=== PATIENT | female | born 1945 | race African-American/Black ===

== ENCOUNTER 2016-10-03 19:02 | Inpatient (IN) | payer MEDICARE ==
--- NOTE | ~2016-10-03 | DS ---
Discharge Summary [address] [place]. [address] NAME: KATELYN ROBLES : 47 STATUS : DIS IN PAT#: [id number] AGE: 71 ADM/REG DATE : 10/05/16 MR#: [id number] REPORT SERV DATE: 10/22/16 DICTATED BY: CHARLETTE CUELLO DATE: 10/21/16 REPORT STATUS : Draft TRANSCRIBED BY: JAQUAN DATE: 10/21/16 Data Collection from hospitalization DISCHARGE DIAGNOSES: 1. Acute heart failure, chronic. 2. Questionable upper respiratory infection versus pneumonia. 3. Sinus tachycardia/nonsustained ventricular tachycardia. 4. Mitral valve regurgitation. 5. Depression. 6. Osteoarthritis. 7. Obesity. 8. Mental retardation. 9. Nonischemic cardiomyopathy with ejection fraction 20%. 10.Chronic venous insufficiency. 11.Osteopenia. 12.Osteoarthritis. 13.Severe hearing impairment. 14.Down syndrome. CONSULTATIONS: John Wilcox M.D., Ph.D, F.A.C.C. PROCEDURES PERFORMED: None. MEDICATIONS: Tylenol 1000 mg twice a day, Cordarone 200 mg daily, Artificial Tears one drop four times a day as needed, aspirin 81 mg daily, Bumex 0.5 mg at 4:00 p.m. and 1 mg daily as instructed, Caltrate plus D 600 mg twice a day, Coreg 6.25 mg twice a day, Celexa 20 mg at bedtime, Colace 200 mg daily, vitamin D 11117 units every 30 days as instructed, Flonase nasal spray two sprays nasally daily, potassium 10 mL every six hours as needed, Levaquin 750 mg every 48 hours, Claritin 10 mg daily, Cozaar 25 mg daily, Singulair 10 mg at bedtime, Prilosec 20 mg daily, MiraLAX powder one packet daily, Klor-Con 30 mEq daily, Zocor 20 mg at bedtime, and Muscle Rub one application topically twice a day as needed. She was instructed not to continue Tylenol p.r.n., Lasix, Toprol, Z-Mac, sennosides, and Zofran. CONDITION AT DISCHARGE: Stable. DISPOSITION: The patient was discharged home on a low-sodium diet with activities as instructed. She would follow up with Dr. John Wilcox on 11/04/2016 and with me seven days following discharge. She would follow up with neuro in [place] one month following discharge. She would follow up with [facility] one month following discharge. She was to undergo a [facility] Outpatient echocardiogram one week following discharge. HOSPITAL COURSE: This is a 71-year-old female who has Down syndrome. The patient presented to the [facility] with a persistent cough, dyspnea on exertion, and a complaint of just not feeling well. According to the assisted living facility, she is usually active, but over the past week, she has been all of her time in bed. She has had some nausea and vomiting and seemed to have some epigastric discomfort. Workup in the clinic had shown clear lungs on chest x-ray. Her white count was within normal limits. BNP was greater than 3000. In the emergency room, she became diaphoretic and had a chest x-ray that showed an infiltrate Discharge Summary [address] [facility] [place]. [address] NAME: KATELYN ROBLES ANN : 47 STATUS : DIS IN PAT#: [id number] AGE: 71 ADM/REG DATE : 10/05/16 MR#: [id number] REPORT SERV DATE: 10/22/16 DICTATED BY: CHARLETTE CUELLO DATE: 10/21/16 REPORT STATUS : Draft TRANSCRIBED BY: JAQUAN DATE: 10/21/16 on the right with pleural effusion. She was given a dose of furosemide and started on nitroglycerin paste. A dose of Levaquin was given. It was felt that pneumonia would definitely explain her persistent cough and may also be the reason why she developed acute heart failure. Levaquin was continued. She was going to continue on albuterol nebulizers and oxygen was continued as well. IV furosemide was being given for potassium supplementation. Losartan was going to be restarted. Toprol, aspirin, and simvastatin were continued. It was felt that we may need to increase her Toprol. Celexa was continued for depression. Her laxatives were continued. We were going to hold bisphosphonates. Calcium and vitamin D were continued. The patient is a DNR code status. The patient was seen by Dr. John Wilcox regarding dyspnea and history of cardiomyopathy. Chest x-ray suggested a large right pleural effusion. BNP was elevated. There was a question about pneumonia giving her cough with sputum production. She had generalized fatigue, but no fever, palpitations, or syncope. Chest x-ray showed cardiomegaly with question soft-tissue overlying the lungs and mild vascular redistribution. EKG showed sinus rhythm/sinus tachycardia with probable episodic supraventricular tachycardia and runs of ventricular tachycardia. Diuretics were increased. She was placed on a low-salt diet with mild fluid restriction. Diuresis was started. The Tsai catheter was removed. She was evaluated by Physical Therapy. On 10/06/2016, she was breathing better. Oral Bumex was being given. Her Coreg dose was increased. O2 was going to be discontinued and we would monitor her O2 saturations. The next day, she was in a normal sinus rhythm. Amiodarone was continued. Her edema had improved. Oral diuretics were continued. We encouraged her to ambulate. O2 was being weaned. On 10/07/2016, urinalysis was going to be checked. She had no edema. Repeat chest x-ray was requested. Oxygen was continued. On 10/08/2016, her T-max was 99. She had some pain in her legs where she fell. Aspirin, amiodarone, Bumex, Coreg, and losartan were continued. The next day, she was breathing easily. O2 saturation ranged 94% to 100% on 1 liter nasal cannula. She had no cough. She said her right knee hurt where she fell, but said it was better. Discharge planning was performed. We encouraged her to take deep breaths with incentive spirometry. Levaquin was continued. Antibiotics were continued discharge instructions were given. Due to her improved and stable condition, she was discharged to [facility] with the above-stated instructions. Information collected by: Nancy Palacios I submit the above information as my discharge summary. TG/MODL Charlette Cuello M.D. / [id number] CC: Charlette Cuello M.D. John Wilcox M.D., Ph.D, F.A.C.C.
--- NOTE | ~2016-10-03 | CN ---
Consultation Report [address] [place]. [address] NAME: KATELYN KRISHNA : 47 STATUS : ADM Flo PAT#: [id number] AGE: 71 ADM/REG DATE : 10/03/16 MR#: [id number] REPORT SERV DATE: 10/04/16 DICTATED BY: JOHN PRIDE DATE: 10/04/16 REPORT STATUS : Draft TRANSCRIBED BY: MODL DATE: 10/04/16 CARDIOLOGY CONSULTATION DATE OF CONSULTATION: CHIEF COMPLAINT: Dyspnea, history of cardiomyopathy. HISTORY OF PRESENT ILLNESS: Ms. Krishna is a 71-year-old woman well known to me with a history of nonischemic cardiomyopathy. She has a mental disability and has power of senior trial attorney for care. She came to the hospital with increasing shortness of breath and cough productive of sputum. She also had some generalized fatigue and little bit increasing shortness of breath. Chest x-ray suggested a large right pleural effusion by my evaluation with an elevated BNP. There was a question about pneumonia given her cough with sputum production. She has generalized fatigue, but no fever. No palpitations or syncope. REVIEW OF SYSTEMS: As per the history of present illness. Ten other systems are negative. PAST MEDICAL HISTORY: 1. Nonischemic cardiomyopathy. 2. Chronic left ventricular dysfunction with history of prophylactic defibrillator placement. 3. Mental deficiency. 4. Hypertension. FAMILY HISTORY: No early heart disease that we are aware of. SOCIAL HISTORY: The patient has close care through the [facility] program. No tobacco or alcohol is reported. ALLERGIES: NO KNOWN DRUG ALLERGIES. HOME MEDICATIONS: 1. Tylenol as directed. 2. Aspirin 81 daily. 3. Azithromycin 250 daily. 4. Caltrate. 5. Celexa 20 at bedtime. 6. Colace 100 daily. 7. Vitamin D. 8. Flonase. 9. Lasix 60 in the morning and Lasix 40 daily. 10.Guanfacine. 11.Claritin. Consultation Report [address] [place]. [address] NAME: KATELYN KRISHNA : 47 STATUS : ADM Flo PAT#: [id number] AGE: 71 ADM/REG DATE : 10/03/16 MR#: [id number] REPORT SERV DATE: 10/04/16 DICTATED BY: JOHN PRIDE DATE: 10/04/16 REPORT STATUS : Draft TRANSCRIBED BY: JAQUAN DATE: 10/04/16 12.Losartan 25 daily. 13.Toprol-XL 50 daily. 14.Singulair. 15.Prilosec. 16.Zofran. 17.MiraLAX. 18.Potassium. 19.Marlee-Colace. 20.Zocor. PHYSICAL EXAMINATION: VITAL SIGNS: Heart rate 92, blood pressure 109/70. GENERAL: The patient is pleasant, black female, in no apparent distress. HEENT: Conjunctivae are anicteric, no xanthelasma, lips without cyanosis. NECK: Supple. Jugular venous pressure is mildly elevated. LUNGS: Decreased breath sounds, right greater than left. CARDIOVASCULAR: Regular rate and rhythm. Normal S1 and S2 without S3. No murmur or rub. PMI is nondisplaced. Soft gallop. ABDOMEN: Soft, nontender, nondistended, with normal bowel sounds. No hepatomegaly. EXTREMITIES: No clubbing, cyanosis. Mild lower extremity edema. NEURO/PSYCH: Alert and oriented to person, place and time. No obvious neurologic deficits. Mood and affect normal. DATA: Chest x-ray shows cardiomegaly with question soft tissue overlying the lung, mild vascular redistribution. EKG shows sinus rhythm/sinus tachycardia with probable episodic SVT and runs of VT. IMPRESSION: 1. Zrgpm-ck-[id number] systolic congestive heart failure. 2. Nonischemic cardiomyopathy. 3. Hypertension. 4. Hypercholesterolemia. 5. Nonsustained ventricular tachycardia with history of defibrillator placement. RECOMMENDATIONS: Katelyn Peña presents with I think some volume overload from heart failure, may she have a consequent infection which is being evaluated and treated. We are going to increase her diuretics over the next day or two and put her on a low-salt diet with some mild fluid restriction. If her creatinine is stable, I may consider if we have an opportunity use an agent such as Entresto. I do not think that spironolactone as an option with hyperkalemia. WO/MODL Consultation Report [address] [place]. [address] NAME: KATELYN KRISHNA : 47 STATUS : ADM Flo PAT#: [id number] AGE: 71 ADM/REG DATE : 10/03/16 MR#: [id number] REPORT SERV DATE: 10/04/16 DICTATED BY: JOHN PRIDE DATE: 10/04/16 REPORT STATUS : Draft TRANSCRIBED BY: JAQUAN DATE: 10/04/16 John Pride M.D., Ph.D, F.A.C.C. / [id number] CC: Charlette Cuello M.D.
--- NOTE | ~2016-10-03 | HP ---
History And Physical [address] [place]. [address] NAME: KATELYN ROBLES : 47 STATUS : ADM Flo PAT#: [id number] AGE: 71 ADM/REG DATE : 10/03/16 MR#: [id number] REPORT SERV DATE: 10/04/16 DICTATED BY: CHARLETTE CUELLO DATE: 10/04/16 REPORT STATUS : Draft TRANSCRIBED BY: MODL DATE: 10/04/16 DATE OF ADMISSION: 10/03/2016 CHIEF COMPLAINT: Cough, dyspnea on exertion, and malaise. HISTORY OF PRESENT ILLNESS: Ms. Robles is a 71-year-old female with Down syndrome, who presented to the [facility] yesterday with persisting cough, dyspnea on exertion, and complaint of just not feeling well. According to the assisted living, she is usually active, but for the last week, she has just been spending all her time in bed. Her conservator also reported that she was having nausea and vomiting and seemed to be having some epigastric discomfort. Unfortunately, getting further details was difficult. Work up in the clinic did show that she had clear lungs on chest x-ray. Her white blood cell count was in normal limits, but her BNP was greater than 3000, so she was sent to the ER for further evaluation. In the ER, she became diaphoretic and had a chest x-ray that clearly showed an infiltrate on the right with pleural effusion. She was given furosemide 80 mg x1, started on a nitroglycerin paste, and given a dose of Levaquin 750. ALLERGIES: LISINOPRIL CAUSES A COUGH. CURRENT MEDICATIONS: Include Tylenol 2 tablets twice daily, Fosamax 35 mg weekly, vitamin D3 of 50,000 international units q. month, losartan 25 mg daily, Colace 100 mg two tablets daily, calcium with vitamin D 600/400 international units twice daily, Claritin 10 mg daily, Flonase 2 sprays daily, artificial tears as needed, simvastatin 20 mg at bedtime, aspirin 81 mg daily, K-Dur 30 mEq daily, Lasix 60 mg daily, Celexa 20 mg at bedtime, Senokot 100 mg at bedtime, and Robitussin as needed. PAST MEDICAL HISTORY: Significant for obesity, mental retardation, nonischemic cardiomyopathy with an EF of 20%. The patient does have an AICD. Cardiac cath done in 2012 showed no significant coronary artery disease. She also has moderate to severe mitral regurgitation. Also has allergic rhinitis, chronic venous insufficiency, osteopenia, osteoarthritis of her knees, and severe hearing impairment. SOCIAL HISTORY: She lives at an assisted living. Her conservator is Martin Leon. FAMILY HISTORY: Noncontributory. REVIEW OF SYSTEMS: No headache, chest pain, abdominal pain, nausea, vomiting, diarrhea, or dizziness. PHYSICAL EXAMINATION: VITAL SIGNS: Temperature 98.7, blood pressure 121/94, pulse 95, respiratory rate 16, and O2 saturation 97% on 2 L. GENERAL: She is an elderly woman in no apparent distress on 2 L of oxygen via nasal cannula. HEENT: Normocephalic, atraumatic. Conjunctiva not injected. No scleral icterus. No posterior oropharyngeal injection. NECK: Supple. She does have prominent cardiac pulsation on the right. History And Physical [address] [address] NAME: KATELYN ROBLES : 47 STATUS : ADM Flo PAT#: [id number] AGE: 71 ADM/REG DATE : 10/03/16 MR#: [id number] REPORT SERV DATE: 10/04/16 DICTATED BY: CHARLETTE CUELLO DATE: 10/04/16 REPORT STATUS : Draft TRANSCRIBED BY: JAQUAN DATE: 10/04/16 CARDIAC: Regular rate and rhythm. LUNGS: She has crackles at both bases, left greater than right. ABDOMEN: Positive bowel sounds. Obese. Soft. Nondistended. Nontender. GENITOURINARY: She has a Tsai in place with clear yellow urine. EXTREMITIES: She has trace bilateral lower extremity edema. NEUROLOGIC: She is alert. She has a depth speech pattern. She follows directions. She asks appropriate questions. There is no focal weakness. SKIN: No pressure ulcers. LABORATORY DATA: White count was 7.5, hemoglobin 13, hematocrit 42, and platelets 174. Albumin was 3.2, alkaline phosphatase was 126, BNP was 3370. Sodium 140, potassium 5.5, chloride 110, bicarb 24, BUN 13, creatinine 1.02, glucose 124. Troponin was normal at 0.03. Lactate was normal at 1.6. This morning, her BUN is 14 and creatinine is 1.03. ABG shows 7.40, 34, 127, 20.4 with an O2 saturation of 98.6%. Chest x-ray showed increased cardiac size, opacity over the entirety of the right hemithorax, may be soft tissue, right basilar atelectasis, and small right pleural effusion. EKG showed sinus rhythm at 134 beats per minute with a wide-complex QRS tachycardia consistent with the intraventricular conduction defect and ST changes consistent with left ventricular hypertrophy. IMPRESSION AND PLAN: 1. Pneumonia. Would definitely explain her persistent cough and may also be the reason why she developed acute heart failure. We will continue Levaquin. We will continue albuterol nebs and continue oxygen. 2. Acute on chronic heart failure with reduced ejection fraction. As mentioned before, her ejection fraction is in the 20s with a moderate to severe mitral regurgitation. We will continue IV furosemide with potassium replacement. We will restart her losartan and push the dose to 50 mg daily. Her blood pressure can tolerate it, and we will also continue Toprol, aspirin, and simvastatin, and I may need to go up on her Toprol as well. We will restrict her sodium and obtain daily weight. 3. Depression. Continue Celexa. 4. Constipation. Continue her laxatives. 5. For her osteopenia, we will hold her bisphosphonates. We will continue her calcium and vitamin D. The patient is a DNR/[place]. Her conservator was updated yesterday, and I did speak to a family member by the name of Mayte who requested sitting services and that request will go to our multidisciplinary team at [facility]. SRI/JAQUAN Charlette Cuello M.D. / [id number] History And Physical [address] [address] NAME: KATELYN ROBLES ANN : 47 STATUS : ADM Flo PAT#: [id number] AGE: 71 ADM/REG DATE : 10/03/16 MR#: [id number] REPORT SERV DATE: 10/04/16 DICTATED BY: CHARLETTE CUELLO DATE: 10/04/16 REPORT STATUS : Draft TRANSCRIBED BY: MAKENNAL DATE: 10/04/16 CC: Charlette Cuello M.D.
[2016-10-03 14:53] LABS: BASOPHILS 0.3 %; BASOPHILS ABSOLUTE 0.02 10/3/uL (0.0-0.16); EOSINOPHILS 0.7 %; EOSINOPHILS ABSOLUTE 0.05 10/3/uL (0.0-0.53); HEMATOCRIT 42.1 % (36.0-48.0); HEMOGLOBIN 13.4 g/dL (12.0-16.0); IMMATURE GRANULOCYTES 0.3 %; IMMATURE GRANULOCYTES ABSOLUTE 0.02 10/3/uL (0.0-0.11); LYMPHOCYTES 22.7 %; MEAN CORPUS HGB CONC 31.8 g/dL (32.0-36.0); MEAN CORPUSCULAR HEMOGLOB 28.4 pg (26.0-34.0); MEAN CORPUSCULAR VOLUME 89.2 fL (80-100); MEAN PLATELET VOLUME 12.1 fL (9.2-13.0); MONOCYTES 8.8 %; MONOCYTES ABSOLUTE 0.66 10/3/uL (0.21-1.20); NEUTROPHILS 67.2 %; NEUTROPHILS ABSOLUTE 5.04 10/3/uL (2.02-8.40); PLATELET COUNT 174 10/3/uL (150-400); RBC DISTRIBUTION WIDTH 14.8 % (12.0-16.0); RED CELL COUNT 4.72 10/6/uL (4.0-5.6); WHITE BLOOD CELLS 7.5 10/3/uL (4.5-10.5)
[2016-10-03 14:54] LABS: MANUAL DIFF NO %
[2016-10-03 16:43] LABS: ALBUMIN 3.2 G/DL (3.5-5.0); DIRECT BILIRUBIN 0.3 MG/DL (0.0-0.4); INDIRECT BILIRUBIN(NOT ORDER) 0.4 MG/DL (0.1-0.9); TOTAL BILIRUBIN 0.7 MG/DL (0-1.2); TOTAL PROTEIN 6.5 G/DL (6.0-8.5)
[~2016-10-03 19:02] MED LIST: ACET500CAP PO; ALLEGRA180 PO; ASAEC PO; CALTRA600D PO; CELEXA20 PO; CHLORASEPTIC1.4 % MT; FLONASE NAS; GANIDIN NR100 MG/5 M PO; GUAIFENESI4 OR; HALF81 PO; K-TABS10 MEQ PO; L20 PO; LOP50 PO; MYLUD PO; OS500+D PO; PRIN10 PO; SENOKOTS PO; TOPXL50 PO; VICODINTAB PO; ZOCOR20 PO
[2016-10-03] MEDS ORDERED: ZOFRAN4 PO (19:53)
[2016-10-03] MEDS ORDERED: Z-PAK PO (19:54)
[2016-10-03] MEDS ORDERED: SINGULAIR1 PO (19:54)
[2016-10-03] MEDS ORDERED: GGEXPUD PO (19:55)
[2016-10-03] MEDS ORDERED: MIRALAX POWDER1 PKT PO (19:56)
[2016-10-03] MEDS ORDERED: ZOCOR20 PO (19:56)
[2016-10-03] MEDS ORDERED: PRILO PO (19:56)
[2016-10-03] MEDS ORDERED: L20 PO (19:57)
[2016-10-03] MEDS ORDERED: ACET500CAP PO ×2 (19:57→20:03)
[2016-10-03] MEDS ORDERED: CLARIT10 PO (19:57)
[2016-10-03] MEDS ORDERED: COZ25 PO (19:58)
[2016-10-03] MEDS ORDERED: DSS PO (19:58)
[2016-10-03] MEDS ORDERED: CALTRA600D PO (19:58)
[2016-10-03] MEDS ORDERED: PERI-COLACE1 TAB PO (20:00)
[2016-10-03] MEDS ORDERED: L40 PO (20:00)
[2016-10-03] MEDS ORDERED: CELEXA20 PO (20:00)
[2016-10-03] MEDS ORDERED: MUSCLE RUB TOP (20:00)
[2016-10-03] MEDS ORDERED: TOPXL50 PO (20:01)
[2016-10-03] MEDS ORDERED: KLOR-CON 1010 MEQ PO (20:01)
[2016-10-03] MEDS ORDERED: HALF81 PO (20:02)
[2016-10-03] MEDS ORDERED: FLONASE NAS (20:02)
[2016-10-03] MEDS ORDERED: TEARS PLUS OPH (20:02)
[2016-10-03] MEDS ORDERED: VITD PO (20:03)
[2016-10-03 20:39] LABS: BASOPHILS 0.1 %; BASOPHILS ABSOLUTE 0.01 10/3/uL (0.0-0.16); EOSINOPHILS 0.2 %; EOSINOPHILS ABSOLUTE 0.02 10/3/uL (0.0-0.53); ER CBC TAT 0 Hrs 12 Mins; HEMATOCRIT 45.5 % (36.0-48.0); HEMOGLOBIN 14.3 g/dL (12.0-16.0); IMMATURE GRANULOCYTES 0.1 %; IMMATURE GRANULOCYTES ABSOLUTE 0.01 10/3/uL (0.0-0.11); LYMPHOCYTES ABSOLUTE 2.51 10/3/uL (0.67-4.30); MEAN CORPUS HGB CONC 31.4 g/dL (32.0-36.0); MEAN CORPUSCULAR HEMOGLOB 28.2 pg (26.0-34.0); MEAN CORPUSCULAR VOLUME 89.7 fL (80-100); MEAN PLATELET VOLUME 12.3 fL (9.2-13.0); MONOCYTES 10.1 %; MONOCYTES ABSOLUTE 0.82 10/3/uL (0.21-1.20); NEUTROPHILS 58.5 %; NEUTROPHILS ABSOLUTE 4.72 10/3/uL (2.02-8.40); PLATELET COUNT 209 10/3/uL (150-400); RBC DISTRIBUTION WIDTH 14.9 % (12.0-16.0); RED CELL COUNT 5.07 10/6/uL (4.0-5.6); WHITE BLOOD CELLS 8.1 10/3/uL (4.5-10.5)
[2016-10-03 20:40] LABS: MANUAL DIFF NO %
[2016-10-03 20:44] LABS: INTERNATIONAL NORMAL RATI 1.3 UNITS (-); PARTIAL THROMBO TIME 26.4 SEC (22.5-37.2); PROTIME (NOT ORD) 15.6 SEC (12.0-14.5)
[2016-10-03 20:50] LABS: BUN (BLOOD UREA NITROGEN) 13 MG/DL (6-23); CALCIUM, SERUM 9.4 MG/DL (8.5-10.4); CHEST PAIN PROFILE TAT 0 Hrs 23 Mins; CHLORIDE, SERUM 110 MMOL/L (96-112); CO2 (CARBON DIOXIDE) 24 MMOL/L (24-34); CREATININE 1.02 MG/DL (0.55-1.02); GFR AFRICAN AMERICAN 65 ML/MIN (>=60); GFR NON AFRICAN AMERICAN 56 ML/MIN (>=60); SODIUM, SERUM 140 MMOL/L (135-148); TROPONIN I 0.03 NG/ML (<0.05)
[2016-10-03 20:51] LABS: GLUCOSE, SERUM 124 MG/DL (60-99); POTASSIUM, SERUM 5.5 MMOL/L (3.5-5.3)
[2016-10-04 02:11] LABS: BASOPHILS 0.1 %; BASOPHILS ABSOLUTE 0.01 10/3/uL (0.0-0.16); EOSINOPHILS 0.3 %; EOSINOPHILS ABSOLUTE 0.02 10/3/uL (0.0-0.53); HEMATOCRIT 43.8 % (36.0-48.0); HEMOGLOBIN 13.8 g/dL (12.0-16.0); IMMATURE GRANULOCYTES 0.1 %; IMMATURE GRANULOCYTES ABSOLUTE 0.01 10/3/uL (0.0-0.11); LYMPHOCYTES 32.7 %; MEAN CORPUS HGB CONC 31.5 g/dL (32.0-36.0); MEAN CORPUSCULAR HEMOGLOB 28.5 pg (26.0-34.0); MEAN CORPUSCULAR VOLUME 90.5 fL (80-100); MONOCYTES 10.4 %; NEUTROPHILS 56.4 %; NEUTROPHILS ABSOLUTE 3.79 10/3/uL (2.02-8.40); PLATELET COUNT 187 10/3/uL (150-400); RBC DISTRIBUTION WIDTH 14.5 % (12.0-16.0); RED CELL COUNT 4.84 10/6/uL (4.0-5.6); WHITE BLOOD CELLS 6.7 10/3/uL (4.5-10.5)
[2016-10-04 02:12] LABS: MANUAL DIFF NO %
[2016-10-04 02:24] LABS: BUN (BLOOD UREA NITROGEN) 14 MG/DL (6-23); CALCIUM, SERUM 9.6 MG/DL (8.5-10.4); CALCIUM, SERUM 9.8 MG/DL (8.5-10.4); CHLORIDE, SERUM 104 MMOL/L (96-112); CHLORIDE, SERUM 105 MMOL/L (96-112); CREATININE 1.03 MG/DL (0.55-1.02); CREATININE 1.07 MG/DL (0.55-1.02); GFR AFRICAN AMERICAN 61 ML/MIN (>=60); GFR AFRICAN AMERICAN 64 ML/MIN (>=60); GFR NON AFRICAN AMERICAN 53 ML/MIN (>=60); GFR NON AFRICAN AMERICAN 55 ML/MIN (>=60); POTASSIUM, SERUM 4.7 MMOL/L (3.5-5.3); POTASSIUM, SERUM 4.9 MMOL/L (3.5-5.3); SODIUM, SERUM 139 MMOL/L (135-148); SODIUM, SERUM 140 MMOL/L (135-148)
[2016-10-04 02:25] LABS: CO2 (CARBON DIOXIDE) 29 MMOL/L (24-34); CO2 (CARBON DIOXIDE) 30 MMOL/L (24-34); GLUCOSE, SERUM 85 MG/DL (60-99)
[2016-10-04 07:24] LABS: ALLENS TEST Pos; BE (BASE EXCESS) -3.6 MEQ/L (0 +/- 2.5); CARBOXYHEMOGLOBIN 1.5 % (0-3); DEVICE NC; HCO3 (ACTUAL BICARBONATE) 20.4 MEQ/L (23-27); HEMOBLOGIN CONTENT 14.6 G/DL (12-16); INSTRUMENT SERIAL # 8087; METHEMOGLOBIN 0.3 % (0-3); OPERATOR ID 33449; PCO2 (CO2 TENSION) 34 MMHG (35-45); PO2 (O2 TENSION) 127 MMHG (79-93); SAMPLE Arterial
[2016-10-05 06:28] LABS: BASOPHILS 0.1 %; BASOPHILS ABSOLUTE 0.01 10/3/uL (0.0-0.16); EOSINOPHILS 1.4 %; HEMATOCRIT 43.2 % (36.0-48.0); HEMOGLOBIN 13.6 g/dL (12.0-16.0); IMMATURE GRANULOCYTES 0.3 %; IMMATURE GRANULOCYTES ABSOLUTE 0.02 10/3/uL (0.0-0.11); LYMPHOCYTES 29.9 %; LYMPHOCYTES ABSOLUTE 2.12 10/3/uL (0.67-4.30); MANUAL DIFF NO %; MEAN CORPUS HGB CONC 31.5 g/dL (32.0-36.0); MEAN CORPUSCULAR VOLUME 89.1 fL (80-100); MEAN PLATELET VOLUME 11.9 fL (9.2-13.0); MONOCYTES 13.4 %; MONOCYTES ABSOLUTE 0.95 10/3/uL (0.21-1.20); NEUTROPHILS 54.9 %; PLATELET COUNT 164 10/3/uL (150-400); RBC DISTRIBUTION WIDTH 14.2 % (12.0-16.0); RED CELL COUNT 4.85 10/6/uL (4.0-5.6); WHITE BLOOD CELLS 7.1 10/3/uL (4.5-10.5)
[2016-10-05 06:41] LABS: BUN (BLOOD UREA NITROGEN) 12 MG/DL (6-23); CALCIUM, SERUM 9.2 MG/DL (8.5-10.4); CHLORIDE, SERUM 98 MMOL/L (96-112); CO2 (CARBON DIOXIDE) 32 MMOL/L (24-34); CREATININE 1.02 MG/DL (0.55-1.02); GFR AFRICAN AMERICAN 65 ML/MIN (>=60); GFR NON AFRICAN AMERICAN 56 ML/MIN (>=60); GLUCOSE, SERUM 92 MG/DL (60-99); POTASSIUM, SERUM 4.3 MMOL/L (3.5-5.3); SODIUM, SERUM 137 MMOL/L (135-148)
[2016-10-06 06:39] LABS: BUN (BLOOD UREA NITROGEN) 11 MG/DL (6-23); CALCIUM, SERUM 9.6 MG/DL (8.5-10.4); CHLORIDE, SERUM 96 MMOL/L (96-112); CO2 (CARBON DIOXIDE) 35 MMOL/L (24-34); CREATININE 0.81 MG/DL (0.55-1.02); GFR AFRICAN AMERICAN 85 ML/MIN (>=60); GFR NON AFRICAN AMERICAN 74 ML/MIN (>=60); GLUCOSE, SERUM 84 MG/DL (60-99); SODIUM, SERUM 135 MMOL/L (135-148)
[2016-10-07 06:01] LABS: BASOPHILS 0.2 %; BASOPHILS ABSOLUTE 0.01 10/3/uL (0.0-0.16); EOSINOPHILS 1.2 %; EOSINOPHILS ABSOLUTE 0.08 10/3/uL (0.0-0.53); HEMATOCRIT 43.9 % (36.0-48.0); HEMOGLOBIN 13.6 g/dL (12.0-16.0); IMMATURE GRANULOCYTES 0.3 %; IMMATURE GRANULOCYTES ABSOLUTE 0.02 10/3/uL (0.0-0.11); LYMPHOCYTES 23.9 %; LYMPHOCYTES ABSOLUTE 1.59 10/3/uL (0.67-4.30); MEAN CORPUSCULAR HEMOGLOB 27.7 pg (26.0-34.0); MEAN CORPUSCULAR VOLUME 89.4 fL (80-100); MEAN PLATELET VOLUME 11.7 fL (9.2-13.0); MONOCYTES 11.6 %; MONOCYTES ABSOLUTE 0.77 10/3/uL (0.21-1.20); NEUTROPHILS 62.8 %; NEUTROPHILS ABSOLUTE 4.17 10/3/uL (2.02-8.40); PLATELET COUNT 165 10/3/uL (150-400); RED CELL COUNT 4.91 10/6/uL (4.0-5.6); WHITE BLOOD CELLS 6.6 10/3/uL (4.5-10.5)
[2016-10-07 06:05] LABS: MANUAL DIFF NO %
[2016-10-07 06:12] LABS: BUN (BLOOD UREA NITROGEN) 11 MG/DL (6-23); CALCIUM, SERUM 9.5 MG/DL (8.5-10.4); CHLORIDE, SERUM 96 MMOL/L (96-112); CO2 (CARBON DIOXIDE) 36 MMOL/L (24-34); CREATININE 0.89 MG/DL (0.55-1.02); GFR AFRICAN AMERICAN 76 ML/MIN (>=60); GFR NON AFRICAN AMERICAN 66 ML/MIN (>=60); GLUCOSE, SERUM 92 MG/DL (60-99); POTASSIUM, SERUM 4.1 MMOL/L (3.5-5.3); SODIUM, SERUM 135 MMOL/L (135-148)
[2016-10-07 18:49] LABS: ASCORBIC ACID (UR NOT ORDER) NEG (NEG); BILIRUBIN, URINE NEGATIVE (NEG); KETONE, URINE NEGATIVE (NEG); LEUKOCYTE ESTERASE(NOT OR LARGE (NEG); WBC (NOT ORDERED) (RFLEX) < 1 (0-5)
[2016-10-09 06:04] LABS: BASOPHILS 0.1 %; BASOPHILS ABSOLUTE 0.01 10/3/uL (0.0-0.16); EOSINOPHILS 1.6 %; EOSINOPHILS ABSOLUTE 0.12 10/3/uL (0.0-0.53); HEMATOCRIT 42.8 % (36.0-48.0); HEMOGLOBIN 13.4 g/dL (12.0-16.0); LYMPHOCYTES 25.5 %; LYMPHOCYTES ABSOLUTE 1.91 10/3/uL (0.67-4.30); MEAN CORPUS HGB CONC 31.3 g/dL (32.0-36.0); MEAN CORPUSCULAR HEMOGLOB 27.9 pg (26.0-34.0); MEAN CORPUSCULAR VOLUME 89.2 fL (80-100); MEAN PLATELET VOLUME 11.7 fL (9.2-13.0); MONOCYTES ABSOLUTE 0.75 10/3/uL (0.21-1.20); NEUTROPHILS 62.8 %; PLATELET COUNT 165 10/3/uL (150-400); RBC DISTRIBUTION WIDTH 14.1 % (12.0-16.0); WHITE BLOOD CELLS 7.5 10/3/uL (4.5-10.5)
[2016-10-09 06:06] LABS: MANUAL DIFF NO %
[2016-10-09 06:18] LABS: BUN (BLOOD UREA NITROGEN) 14 MG/DL (6-23); CALCIUM, SERUM 9.5 MG/DL (8.5-10.4); CHLORIDE, SERUM 96 MMOL/L (96-112); CO2 (CARBON DIOXIDE) 31 MMOL/L (24-34); CREATININE 1.04 MG/DL (0.55-1.02); GFR AFRICAN AMERICAN 63 ML/MIN (>=60); GFR NON AFRICAN AMERICAN 54 ML/MIN (>=60); GLUCOSE, SERUM 96 MG/DL (60-99); POTASSIUM, SERUM 3.9 MMOL/L (3.5-5.3); SODIUM, SERUM 133 MMOL/L (135-148)
[2016-10-10 07:12] LABS: BUN (BLOOD UREA NITROGEN) 21 MG/DL (6-23); CALCIUM, SERUM 9.6 MG/DL (8.5-10.4); CHLORIDE, SERUM 99 MMOL/L (96-112); CO2 (CARBON DIOXIDE) 33 MMOL/L (24-34); CREATININE 1.24 MG/DL (0.55-1.02); GFR AFRICAN AMERICAN 51 ML/MIN (>=60); GFR NON AFRICAN AMERICAN 44 ML/MIN (>=60); GLUCOSE, SERUM 101 MG/DL (60-99); POTASSIUM, SERUM 4.2 MMOL/L (3.5-5.3); SODIUM, SERUM 136 MMOL/L (135-148)
[2016-10-10] MEDS ORDERED: CORDARONE PO (16:17)
[2016-10-10] MEDS ORDERED: BUM1 PO (16:18)
[2016-10-10] MEDS ORDERED: BUM5 PO (16:19)
[2016-10-10] MEDS ORDERED: COREG6 PO (16:20)
[2016-10-10] MEDS ORDERED: LEVAQUIN750 MG PO (16:24)
== END 2016-10-10 17:31 | DRG 291 ==
LOC: ER 19:02 → 7NO 21:28
PROVIDERS: Family Medicine; Internal Medicine Geriatric Medicine; Nurse Practitioner Acute Care
DX: I11.0 Hypertensive heart disease with heart failure (principal); J18.9 Pneumonia, unspecified organism; I47.2 Ventricular tachycardia; E87.1 Hypo-osmolality and hyponatremia; N39.0 Urinary tract infection, site not specified; I50.23 Acute on chronic systolic (congestive) heart failure; F32.9 Major depressive disorder, single episode, unspecified; K59.00 Constipation, unspecified; M85.80 Other specified disorders of bone density and structure, unspecified site; Z95.810 Presence of automatic (implantable) cardiac defibrillator; I35.0 Nonrheumatic aortic (valve) stenosis; E78.5 Hyperlipidemia, unspecified
CPT/HCPCS: 71010; 71020; 73560-RT; 80048; 80076; 81001; 82805; 83605; 83690; 83735; 83880; 84145; 84484; 85025; 85610; 85730; 87040; 87086; 93005; 94640; 96374; 97161-GP; 99291; A9270-GY; J1956